=== PATIENT | male | born 1955 | race Caucasian/White ===

== ENCOUNTER → 2016-03-22 | Outpatient (CLI) | payer OTHER ==
--- NOTE | 2016-03-22 18:45 | CT ---
High resolution Chest CT without contrast Indication: 60-year-old man with history of vasculitis. Follow up pulmonary nodules. Technique: Axial high resolution computed tomographic images obtained including inspiratory and expir atory 1.25-mm slice thickness images at 10-mm intervals. Prone axial images through the lung bases wi th inspiratory phase at 1.25-mm thickness at 10-mm intervals. Axial 2.5-mm images through the entire chest with inspiratory phase also obtained. No intravenous contrast utilized. Dose reduction techniqu es were utilized. Comparison: High resolution chest CT dated June 02, 2015. Findings: No interstitial nodules or cavitary lesions to suggest granulomatosis polyangiitis (Kris 's granulomatosis). Minimal centrilobular emphysema throughout the upper and mid lung zones and minim al cylindric bronchiectasis without central mucous plugging are unchanged. No cyst with nodules to horton ggest Langerhans histiocytosis. No emphysema. Numerous tiny nodules measuring between 1 and 4 mm scattered throughout bilateral lower lobes are unc hanged. The previously referenced 4-mm right lower lobe pulmonary nodule on image #179 of series 7 is unchanged. No new pulmonary nodule, edema, or airspace consolidation. No enlarged lymph node or mass throughout the axilla, mediastinum or pulmonary asha. The heart size i s normal. No pericardial or pleural effusion. Minimal calcified plaque is present along the right cor onary and proximal left anterior descending coronary artery. The thoracic aorta is normal with minima l calcified plaque in the upper abdomen. Numerous well-circumscribed benign renal cysts and a 1-cm be nign left adrenal adenoma (-10 Hounsfield units) are unchanged. No fracture or bone lesion. Impression: 1. No evidence of pulmonary fibrosis or granulomatosis with polyangiitis. 2. Minimal centrilobular emphysema and minimal bronchiectasis are unchanged. 3. Scattered tiny pulmonary nodules throughout the right and left lower lobes are unchanged. The larg est measuring 4 mm in the right lower lobe is unchanged since 2016. Recommend continued surveillance if the nodules are proven to be stable over a two-year interval (given patient's history of smoking). 4. Minimal calcified coronary plaque.
== END ==
LOC: FIMAGING 15:58
PROVIDERS: ATTEND Internal Medicine Rheumatology
DX: R91.8 Other nonspecific abnormal finding of lung field (principal); R94.2 Abnormal results of pulmonary function studies; J43.2 Centrilobular emphysema; J47.9 Bronchiectasis, uncomplicated; I25.10 Atherosclerotic heart disease of native coronary artery without angina pectoris; Z86.79 Personal history of other diseases of the circulatory system

== ENCOUNTER → 2017-02-17 | Outpatient (CLI) | payer OTHER | LOC: CIMAGING 10:27 | PROVIDERS: ATTEND Internal Medicine Rheumatology | DX: J34.89 Other specified disorders of nose and nasal sinuses (principal); J34.2 Deviated nasal septum; M31.30 Wegener's granulomatosis without renal involvement | CPT/HCPCS: 70486-PO ==

== ENCOUNTER → 2017-05-12 | Outpatient (CLI) | payer OTHER | LOC: FIMAGING 19:33 | PROVIDERS: ATTEND Internal Medicine | DX: M50.023 Cervical disc disorder at C6-C7 level with myelopathy (principal); M48.03 Spinal stenosis, cervicothoracic region ==

== ENCOUNTER → 2017-08-22 | Outpatient (CLI) | payer OTHER | LOC: FIMAGING 08:38 | PROVIDERS: ATTEND Physician Assistant | DX: M50.11 Cervical disc disorder with radiculopathy, high cervical region (principal); M50.21 Other cervical disc displacement, high cervical region; M50.33 Other cervical disc degeneration, cervicothoracic region; M48.02 Spinal stenosis, cervical region; Z98.890 Other specified postprocedural states ==

== ENCOUNTER → 2017-11-02 | Outpatient (CLI) | payer OTHER | LOC: FIMAGING 11:30 | PROVIDERS: ATTEND Family Medicine Sports Medicine | DX: M54.5 Low back pain (principal); M53.87 Other specified dorsopathies, lumbosacral region; M51.37 Other intervertebral disc degeneration, lumbosacral region ==

== ENCOUNTER → 2018-03-12 | Day surgery (SDC) | payer OTHER ==
[~2018-03-12] MED LIST: IOPAMIDOL (ISOVUE-M 300) 15 ML VIAL ONE; TRIAMCINOLONE ACETONIDE 200 MG/5 ML MDV IM ONE
== END ==
LOC: FIMAGING 13:19
PROVIDERS: ATTEND Radiology Diagnostic Radiology
PROC: 3E0S3BZ Introduction of Anesthetic Agent into Epidural Space, Percutaneous Approach (ICD-10-PCS; principal; 2018-03-12)
PROC: BR101ZZ Fluoroscopy of Cervical Spine using Low Osmolar Contrast (ICD-10-PCS; principal; 2018-03-12)
PROC: 3E0S33Z Introduction of Anti-inflammatory into Epidural Space, Percutaneous Approach (ICD-10-PCS; principal; 2018-03-12)
DX: M54.12 Radiculopathy, cervical region (principal)
CPT/HCPCS: J3301; Q9967